=== PATIENT | male | born 1965 | race Hispanic/Latino ===

== ENCOUNTER 2024-05-01 05:49 | Day surgery (SDC) | payer MEDICAID ==
[~2024-05-01] VITALS: Ht 172.7 cm; Wt 86.2 kg
[2024-05-01] VITALS (9 sets, daily range): BP systolic 112–177; BP diastolic 40–53; PULSE 73–84; RESP 13–16
[2024-05-01] MEDS ORDERED: ASPI-1197 PO (06:45)
[2024-05-01] MEDS ORDERED: LISI20TA24 PO (06:45)
[2024-05-01] MEDS ORDERED: METO-408 PO (06:45)
[2024-05-01] MEDS ORDERED: ATOR40TA69 PO (06:45)
[2024-05-01] MEDS ORDERED: CILO100T3 PO (06:45)
[2024-05-01] MEDS ORDERED: PANT40TA54 PO (06:45)
[2024-05-01] MEDS ORDERED: SUCR500T PO (06:45)
[2024-05-01] MEDS ORDERED: ERGO2000 PO (06:45)
[2024-05-01] MEDS ORDERED: FOLI0.8T22 PO (06:45)
[2024-05-01] MEDS: 0.9%NACL 1000ML 1,000 ML IV ONE (06:50)
[2024-05-01] MEDS ORDERED: PROPOFOL 10 MG/ML 20ML VIAL IV ONE (07:34)
== END 2024-05-01 09:05 | disposition home or self-care (01) ==
LOC: DAH 05:49 → ENDO 05:49
PROVIDERS: ATTEND Internal Medicine
DX: R10.13 Epigastric pain (principal); K29.70 Gastritis, unspecified, without bleeding; R10.10 Upper abdominal pain, unspecified; E78.00 Pure hypercholesterolemia, unspecified; E11.22 Type 2 diabetes mellitus with diabetic chronic kidney disease; I12.0 Hypertensive chronic kidney disease with stage 5 chronic kidney disease or end stage renal disease; N18.6 End stage renal disease; F41.9 Anxiety disorder, unspecified; F32.A Depression, unspecified; Z79.82 Long term (current) use of aspirin; Z79.899 Other long term (current) drug therapy; Z99.2 Dependence on renal dialysis; Z98.42 Cataract extraction status, left eye
CPT/HCPCS: 82948 ×2; 43239; J7030 ×2; J3490; A4620; A4215; A4223; A4657; A7002; A4222; A4221; A4663; A4606; J2704